=== PATIENT | male | born 1960 | race Caucasian/White ===

== ENCOUNTER → 2016-07-05 | Outpatient (CLI) | payer MEDICAID ==
--- NOTE | 2016-07-05 13:26 | RADIOLOGY REPORT PS360 ---
CHEST(2 VIEWS-NOT PORTABLE) HISTORY: COUGH ORDERING PHYSICIAN: SHO GUSTAFSON PATIENT AGE: 55 years COMPARISON: 09/25/2015 FINDINGS: The cardiomediastinal silhouette and pulmonary vascularity are within normal limits. The lungs are clear without infiltrates, suspicious nodules, or pleural effusions. No acute bony abnormalities. A BEEF BONER shunt traverses the right hemithorax IMPRESSION: No change with no acute finding
--- NOTE | 2016-07-05 13:26 | RADIOLOGY REPORT PS360 ---
CHEST(2 VIEWS-NOT PORTABLE) HISTORY: COUGH ORDERING PHYSICIAN: SHO GUSTAFSON PATIENT AGE: 55 years COMPARISON: 09/25/2015 FINDINGS: The cardiomediastinal silhouette and pulmonary vascularity are within normal limits. The lungs are clear without infiltrates, suspicious nodules, or pleural effusions. No acute bony abnormalities. A BULLION WEIGHER shunt traverses the right hemithorax IMPRESSION: No change with no acute finding
--- NOTE | 2016-07-05 13:27 | RADIOLOGY REPORT PS360 ---
ANKLE-RT-3 VIEWS HISTORY: PAIN AND SWELLING ORDERING PHYSICIAN: SHO GUSTAFSON PATIENT AGE: 55 years COMPARISON: None FINDINGS: No fracture or dislocation. No lytic or blastic change. There is normal mineralization.. The joint spaces are well-preserved. No significant degenerative/arthritic changes. No erosive changes evident. Incidental vascular calcifications IMPRESSION: Negative, no acute finding
--- NOTE | 2016-07-05 13:28 | RADIOLOGY REPORT PS360 ---
FOOT-RT-3 VIEWS HISTORY: PAIN AND SWELLING ORDERING PHYSICIAN: SHO GUSTAFSON PATIENT AGE: 55 years COMPARISON: None FINDINGS: No fracture or dislocation. No lytic or blastic change. There is normal mineralization.. There are minimal osteoarthritic change of the first metatarsophalangeal joint. Mild hypertrophic change distal aspect of first metatarsal Incidental vascular calcifications noted IMPRESSION: Mild osteoarthritic change first metatarsophalangeal joint otherwise negative
--- NOTE | 2016-07-05 13:29 | RADIOLOGY REPORT PS360 ---
LOWER LEG-RT HISTORY: PAIN AND SWELLING ORDERING PHYSICIAN: SHO GUSTAFSON PATIENT AGE: 55 years COMPARISON: None FINDINGS: No bony or joint abnormality. No fracture or dislocation. No lytic or blastic change. IMPRESSION: Negative right tib-fib
== END ==
LOC: RAD 11:49
DX: R05 Cough (principal); M79.604 Pain in right leg; M79.89 Other specified soft tissue disorders

== ENCOUNTER 2016-08-30 16:14 | Emergency (ER) | payer MEDICAID ==
[~2016-08-30] VITALS: Ht 162.6 cm; Wt 72.6 kg
[2016-08-30] MEDS ORDERED: ALDACTONE 25MG25 MG NG (16:52)
[2016-08-30] MEDS ORDERED: ASPIRIN ADULT L81 M3 PO (16:52)
[2016-08-30] MEDS ORDERED: LISINOPRIL2.5 M1 PO (16:52)
[2016-08-30] MEDS ORDERED: CLOPIDOGREL75 MG PO (16:53)
[2016-08-30] MEDS ORDERED: FUROSEMIDE 40MG40 M1 PO (16:53)
[2016-08-30] MEDS ORDERED: LIPITOR40 MG PO (16:54)
[2016-08-30] MEDS ORDERED: HEARTBURN RELIE75 MG PO (16:54)
[2016-08-30] MEDS ORDERED: METOPROLOL25 MG PO (16:55)
--- NOTE | 2016-08-30 17:06 | Emergency Room Report ---
History of Present Illness Time Seen by 1921 Presenting Problem in Triage Pt arrived:Walked Presenting Problem:PT STATES HIS RIGHT LAF AND BACK STARTED HURTING THIS AM. 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 N Clinical Suspician of Infection? N Mental Status: 1 - Regular (Normal Baseline) Sepsis Risk:Low Sepsis Risk Have you (or family members/close friends) recently traveled outside the [place]? N If Yes, where/when: Have you had exposure to infectious disease within the past month? TB? Other? Specify: Source patient, RN notes reviewed, family, RN/MD Exam Limitations no limitations Comment This is a 55-year-old male patient presented to the emergency room with RIGHT lower back pain radiating down the RIGHT lower extremity, nontraumatic, without any associated incontinence or saddle anesthesia, since earlier this morning. She denies any previous similar episodes in the past. ALLERGIES Coded Allergies: No Known Allergies (09/25/15) Home Medications Reported Medications Lisinopril 2.5 MG PO DAILY #60 Aspirin (Aspirin EC) 81 MG PO DAILY #30 Spironolactone (Aldactone) 25 MG NG DAILY #30 Furosemide 40 MG PO DAILY #30 CLOPIDOGREL BISULFATE (Clopidogrel 75MG) 75 MG PO DAILY Ranitidine HCl (Heartburn Relief) 75 MG PO DAILY Atorvastatin Calcium (Atorvastatin) 40 MG PO DAILY Metoprolol Tartrate (Metoprolol) 12.5 MG PO BID History Medical History General CAD? No Angina: No IN: Yes Hypertension? No Hyperlipidemia? No CHF? No DVT? No PE? No COPD? No Asthma? No Anemia? No GERD? No Gastric ulcers? No GI Bleed? No Hernia? No Thyroid Problems? No Hypothyroidism? No CVA? No Seizures? No Diabetes? No Renal Insuffiency? No End Stage Renal Disease? No UTI? No Stones? No BPH? No GB Disease: No Nephritic Syndrome? No Asplenia? No Hepatitis? No Sickle Cell Disease? No Arthritis? No Migraines? No Cataracts? No Glaucoma? No MRSA? No HIV? No TB? No Anxiety? No Depression? No Cancer? No More? No Immunization Hx DT/Tetanus Unknown Surgical Hx Previous Surgery?Y BRAIN SURGERY HEART CATH X1 STENT Social History Smoking Hx Smoker: Current Every Day Smoker Tobacco: Yes Type Chew Alcohol Alcohol: No Review of Systems All Other Systems Reviewed and Negative Musculoskeletal back pain Physical Exam Vital Signs Vital Signs Date Time Temp Pulse Resp B/P Pulse O2 O2 Flow FiO2 Ox Delivery Rate 08/30 1802 98.5 64 20 127/79 95 08/30 1720 20 08/30 1646 98.5 64 18 127/79 95 General Appearance normal appearance, WD/WN, moderate distress Neck normal inspection, non-tender, supple, full range of motion Respiratory Status Yes: trachea midline, chest symmetrical, non tender chest. No: respiratory distress. Lung Sounds bilateral: normal breath sounds, lungs clear. Cardiovascular normal exam, regular rate/rhythm, no peripheral edema, no gallop, no JVD, no murmur, no rub, normal peripheral pulses Peripheral Pulses Pulses normal Yes Gastrointestinal normal bowel sounds, normal exam, non tender, soft, no organomegaly Back normal inspection, no CVA tenderness, no vertebral tenderness, gait normal, muscle spasm Extremities non-tender, normal range of motion, normal inspection Neurologic alert, websphere developer II-XII nml as tested, normal exam, oriented x 3 Reflexes Reflexes normal Yes Skin intact, normal color, warm/dry Medical Decision Making LABS/Meds/Orders Pt receiving controlled substance in ED? No Comment Upon reevaluation the patient appears medically stable, clinically improving. Advised patient to follow-up with PCP per discharge instructions, and take the medications prescribed as directed. Results/Orders Orders Procedure Date/time Status LUMBAR SPINE 5 VIEWS 08/30 1710 Active XRAY/CT/US XRAY/CT/US XRAY L-spine XR interpretation by reviewed by me, discussed w/radiologist Xray Results normal/NAD, no fracture seen Departure Departure Time of Disposition 1747 Disposition DC Home or Self Care(routine) Clinical Impression Primary Impression: Lumbar strain Qualifiers: Encounter type: initial encounter Qualified Code: S39.012A - Strain of muscle, fascia and tendon of lower back, initial encounter Condition STABLE Referrals TAN GRULLON, DORIS IQBAL: Tomorrow-Call Office if not better Patient Instructions DI for Low Back Pain, DI for Muscle Strain Additional Instructions Please take the medications prescribed as directed, follow-up with Dr. Hanna in 2-3 days if no better. Discharge Counseling Counseled pt/family regarding diagnosis, test results, medications/RX, home care, follow up needs Comment Please take the medications prescribed as directed, follow-up with Dr. Hanna in 2-3 days if no better. Prescriptions Current Visit Scripts Methylprednisolone (Medrol Dose Rogers) 4 MG PO UD #1 ROGERS TAKE DIRECTED ON PACKAGING Etodolac 200 MG PO BIDP PRN pain #20 CAP Cyclobenzaprine Hcl (Flexeril) 10 MG PO TID #30 TAB ED Critical Care Critical Care No at 4856
--- NOTE | 2016-08-30 17:06 | Emergency Room Report ---
History of Present Illness Time Seen by [id number] Presenting Problem in Triage Pt arrived:Walked Presenting Problem:PT STATES HIS RIGHT LAF AND BACK STARTED HURTING THIS AM. 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 N Clinical Suspician of Infection? N Mental Status: 1 - Regular (Normal Baseline) Sepsis Risk:Low Sepsis Risk Have you (or family members/close friends) recently traveled outside the [place]? N If Yes, where/when: Have you had exposure to infectious disease within the past month? TB? Other? Specify: Source patient, RN notes reviewed, family, RN/MD Exam Limitations no limitations Comment This is a 55-year-old male patient presented to the emergency room with RIGHT lower back pain radiating down the RIGHT lower extremity, nontraumatic, without any associated incontinence or saddle anesthesia, since earlier this morning. She denies any previous similar episodes in the past. ALLERGIES Coded Allergies: No Known Allergies (09/25/15) Home Medications Reported Medications Lisinopril 2.5 MG PO DAILY #60 Aspirin (Aspirin EC) 81 MG PO DAILY #30 Spironolactone (Aldactone) 25 MG NG DAILY #30 Furosemide 40 MG PO DAILY #30 CLOPIDOGREL BISULFATE (Clopidogrel 75MG) 75 MG PO DAILY Ranitidine HCl (Heartburn Relief) 75 MG PO DAILY Atorvastatin Calcium (Atorvastatin) 40 MG PO DAILY Metoprolol Tartrate (Metoprolol) 12.5 MG PO BID History Medical History General CAD? No Angina: No SD: Yes Hypertension? No Hyperlipidemia? No CHF? No DVT? No PE? No COPD? No Asthma? No Anemia? No GERD? No Gastric ulcers? No GI Bleed? No Hernia? No Thyroid Problems? No Hypothyroidism? No CVA? No Seizures? No Diabetes? No Renal Insuffiency? No End Stage Renal Disease? No UTI? No Stones? No BPH? No GB Disease: No Nephritic Syndrome? No Asplenia? No Hepatitis? No Sickle Cell Disease? No Arthritis? No Migraines? No Cataracts? No Glaucoma? No MRSA? No HIV? No TB? No Anxiety? No Depression? No Cancer? No More? No Immunization Hx DT/Tetanus Unknown Surgical Hx Previous Surgery?Y BRAIN SURGERY HEART CATH X1 STENT Social History Smoking Hx Smoker: Current Every Day Smoker Tobacco: Yes Type Chew Alcohol Alcohol: No Review of Systems All Other Systems Reviewed and Negative Musculoskeletal back pain Physical Exam Vital Signs Vital Signs Date Time Temp Pulse Resp B/P Pulse O2 O2 Flow FiO2 Ox Delivery Rate 08/30 1802 98.5 64 20 127/79 95 08/30 1720 20 08/30 1646 98.5 64 18 127/79 95 General Appearance normal appearance, WD/WN, moderate distress Neck normal inspection, non-tender, supple, full range of motion Respiratory Status Yes: trachea midline, chest symmetrical, non tender chest. No: respiratory distress. Lung Sounds bilateral: normal breath sounds, lungs clear. Cardiovascular normal exam, regular rate/rhythm, no peripheral edema, no gallop, no JVD, no murmur, no rub, normal peripheral pulses Peripheral Pulses Pulses normal Yes Gastrointestinal normal bowel sounds, normal exam, non tender, soft, no organomegaly Back normal inspection, no CVA tenderness, no vertebral tenderness, gait normal, muscle spasm Extremities non-tender, normal range of motion, normal inspection Neurologic alert, automatic pattern edger II-XII nml as tested, normal exam, oriented x 3 Reflexes Reflexes normal Yes Skin intact, normal color, warm/dry Medical Decision Making LABS/Meds/Orders Pt receiving controlled substance in ED? No Comment Upon reevaluation the patient appears medically stable, clinically improving. Advised patient to follow-up with PCP per discharge instructions, and take the medications prescribed as directed. Results/Orders Orders Procedure Date/time Status LUMBAR SPINE 5 VIEWS 08/30 1710 Active XRAY/CT/US XRAY/CT/US XRAY L-spine XR interpretation by reviewed by me, discussed w/radiologist Xray Results normal/NAD, no fracture seen Departure Departure Time of Disposition 1747 Disposition DC Home or Self Care(routine) Clinical Impression Primary Impression: Lumbar strain Qualifiers: Encounter type: initial encounter Qualified Code: S39.012A - Strain of muscle, fascia and tendon of lower back, initial encounter Condition STABLE Referrals TAN GRULLON, DORIS IQBAL: Tomorrow-Call Office if not better Patient Instructions DI for Low Back Pain, DI for Muscle Strain Additional Instructions Please take the medications prescribed as directed, follow-up with Dr. Hanna in 2-3 days if no better. Discharge Counseling Counseled pt/family regarding diagnosis, test results, medications/RX, home care, follow up needs Comment Please take the medications prescribed as directed, follow-up with Dr. Hanna in 2-3 days if no better. Prescriptions Current Visit Scripts Methylprednisolone (Medrol Dose Rogers) 4 MG PO UD #1 ROGERS TAKE DIRECTED ON PACKAGING Etodolac 200 MG PO BIDP PRN pain #20 CAP Cyclobenzaprine Hcl (Flexeril) 10 MG PO TID #30 TAB ED Critical Care Critical Care No at 2167
--- OUTSIDE RECORDS SUMMARY | 2016-08-30 17:25 | External Medical Summary Rpt ---
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 Name Role Phone STATON, STATON Unavailable Unavailable STATON, STATON Unavailable Unavailable STATON ALL, STATON ALL Unavailable Unavailable [facility], Unavailable Unavailable [facility] CHRISTINE, Unavailable Unavailable [facility] CHRISTINE [facility], Unavailable Unavailable [facility] Unavailable Unavailable INC, [facility] Unavailable Unavailable [facility], [facility] Unavailable Unavailable [facility], [facility] RUBI CECI, RUBI CECI Unavailable Unavailable [facility], Unavailable [facility]available [facility], [facility] RENUSCH MIKHAIL, RENUSCH Unavailable Unavailable MIKHAIL Purpose Continuity of Care Document - 09-25-2015 through 2016 Problems Code Diagnosis DOS Provider Status J329 CHRONIC 08-09-2016 [facility] UNSPECIFIED J0190 ACUTE 07-05-2016 [facility] UNSPECIFIED S39884 PAIN IN 07-05-2016 [facility] E18385 PAIN IN 07-05-2016 [facility] T92306 PAIN IN 07-05-2016 [facility] J80833 PAIN IN 07-05-2016 [facility] M7989 OTHER 07-05-2016 [facility] SPE[facility]IED [facility] SOFT TISSUE [facility] DISORDERS R05 COUGH 07-05-2016 [facility] T148 OTHER 07-05-2016 [facility] UNSPECIFIED BODY REGION R937 ABN FIND ON 04-07-2016 [facility] OTH PART [facility] MUSCULOSKEL ETAL SYS I340 NONRHEUMATI 03-09-2016 [facility] INSUFFICIEN CY I361 NONRHEUMATI 03-09-2016 [facility] TRICUSPID [facility] INSUFFICIEN CY I509 HEART 03-09-2016 [facility]PEC[facility] R932 ABNORMAL 03-09-2016 [facility] F[facility] LIVER & BILI TRACT E119 TYPE 2 03-08-2016 [facility] MELLITUS [facility] WITHOUT COMPLICATIO NS E785 HYPERLIPIDE 03-08-2016 [facility] UNSPECIFIED INC I10 ESSENTIAL 03-08-2016 [facility] HYPERTENSIO INC N 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 ANGINA PECTORIS R188 OTHER 03-08-2016 [facility] I213 ST 09-25-2015 [facility] INFARCTION UNS SITE I21.3 ST ELEVATION (STEMI) MYOCARDIAL INFARCTION OF UNSP SITE Allergies, Adverse Reactions, Alerts Clinical Alert Notifications Alert Diabetes: no A1C in the last 6 months Diabetes: no eye exam in the last 365 days Diabetes: no influenza vaccine in the last 365 days Diabetes: no lipid panel in the last 365 days Diabetes: no urine protein screening in the last 365 days Medications Na ND Rx Da Fi Fi Am Da Di Ph RX Ph St me C No te ll ll ou ys ag ar # ys at rm s nt no ma ic us Or Da si cy ia de te s n re d SP 53 04 04 30 30 00 CA Ac IR 74 -0 -2 .0 00 RL ti ON 60 8- 8- 00 00 IS ve OL 51 20 20 76 LE AC 11 17 [address] NE UG S 25 MG TA BL ET LI 68 04 04 60 30 00 CA Ac SI 18 -0 -2 .0 00 RL ti NO 00 8- 8- 00 00 IS ve NV 51 20 20 76 LE IL 20 17 [address] 2. UG 5 S MG TA BL ET 00 04 04 30 30 00 CA Ac PI 60 -0 -2 .0 00 RL ti RI 30 8- 8- 00 00 IS ve N 02 20 20 76 LE EC 63 17 [address] 81 UG S MG TA BL ET FU 00 04 04 30 30 00 CA Ac RO 37 -0 -2 .0 00 RL ti SE 80 8- 8- 00 00 IS ve ID 21 20 20 76 LE DE 61 17 [address] 40 UG S MG TA BL ET RA 53 03 04 60 30 00 CA Ac NI 74 -2 -1 .0 00 RL ti TI 60 5- 4- 00 00 IS ve DI 25 20 20 76 LE NE 30 17 [address] 15 UG 0 S MG TA BL ET ME 62 03 04 30 30 00 CA Ac TO 03 -2 -1 .0 00 RL ti NV 70 5- 4- 00 00 IS ve OL 83 20 20 76 LE OL 01 17 [address] BLANC UG CC S ER 25 MG TA B CL 33 03 04 30 30 00 CA Ac OP 34 -2 -1 .0 00 RL ti ID 20 5- 4- 00 00 IS ve OG 06 20 20 76 LE RE 01 17 17 [address] 75 UG S MG TA BL ET AT 00 03 04 30 30 00 CA Ac OR 37 -2 -1 .0 00 RL ti VA 83 5- 4- [address] 95 20 20 76 LE AT 20 17 17 [address] UG 40 S MG TA BL ET BE 67 03 04 30 10 00 CA Ac NZ 87 -1 -0 .0 00 RL ti ON 70 7 00 IS ve AT 10 20 20 77 LE AT 60 17 17 [address] 20 UG 0 S MG CA PS UL E 00 03 04 30 30 00 CA Ac PI 60 -1 -0 .0 00 RL ti RI 30 3- 7- 00 00 IS ve N 02 20 20 76 LE EC 63 17 [address] 81 UG S MG TA BL ET SP 53 03 04 30 30 00 CA Ac IR 74 -1 -0 .0 00 RL ti ON 60 3- 7- 00 00 IS ve OL 51 20 20 76 LE AC 11 17 17 [address] NE UG S 25 MG TA BL ET AM 00 03 04 20 10 00 CA Ac OX 78 -1 -0 .0 00 RL ti IC 15 4- 7- 00 00 IS ve IL 06 20 20 77 LE LI 10 17 17 [address] 87 UG 5 S MG TA BL ET FU 00 03 04 30 30 00 CA Ac RO 37 -1 -0 .0 00 RL ti SE 80 3- 7- 00 00 IS ve ID 21 20 20 76 LE DE 61 17 [address] 40 UG S MG TA BL ET LI 68 03 04 60 30 00 CA Ac SI 18 -1 -0 .0 00 RL ti NO 00 3- 7- 00 00 IS ve NV 51 20 20 76 LE IL 20 17 [address] 2. UG 5 S MG TA BL ET CL 33 02 03 30 30 00 CA Ac OP 34 -2 -1 .0 00 RL ti ID 20 5- 7- 00 00 IS ve OG 06 20 20 76 LE RE 01 17 17 [address] 75 UG S MG TA BL ET AT 00 02 03 30 30 00 CA Ac OR 37 -2 -1 .0 00 RL ti VA 83 5- 7- [address] 95 20 20 76 LE AT 20 17 17 [address] UG 40 S MG TA BL ET RA 53 02 03 60 30 00 CA Ac NI 74 -2 -1 .0 00 RL ti TI 60 5- 7- 00 00 IS ve DI 25 20 20 76 LE NE 30 17 17 71 5 83 15 UG 0 S MG TA BL ET ME 62 02 03 30 30 00 CA Ac TO 03 -2 -1 .0 00 RL ti NV 70 5- 7- 00 00 IS ve OL 83 20 20 76 LE OL 01 17 17 71 0 82 BLANC UG CC S ER 25 MG TA B 00 02 03 30 30 00 CA Ac PI 60 -1 -1 .0 00 RL ti RI 30 0- 0- 00 00 IS ve N 02 20 20 76 LE EC 63 17 [address] 81 UG S MG TA BL ET FU 00 02 03 30 30 00 CA Ac RO 37 -1 -1 .0 00 RL ti SE 80 0- 0- 00 00 IS ve ID 21 20 20 76 LE DE 61 17 17 71 0 84 40 UG S MG TA BL ET SP 53 02 03 30 30 00 CA Ac IR 74 -1 -1 .0 00 RL ti ON 60 0- 0- 00 00 IS ve OL 51 20 20 76 LE AC 11 17 17 71 TO 0 81 NE UG S 25 MG TA BL ET LI 68 02 03 52 26 00 CA Ac SI 18 -1 -1 .0 00 RL ti NO 00 1- 0- 00 00 IS ve NV 51 20 20 76 LE IL 20 17 [address] 2. UG 5 S MG TA BL ET RA 53 01 02 60 30 00 CA Ac NI 74 -2 -1 .0 00 RL ti TI 60 3- 7- 00 00 IS ve DI 25 20 20 76 LE NE 30 17 17 71 5 83 15 UG 0 S MG TA BL ET SP 53 01 02 30 30 00 CA Ac IR 74 -1 -1 .0 00 RL ti ON 60 1- 0- 00 00 IS ve OL 51 20 20 76 LE AC 11 17 17 71 TO 0 81 NE UG S 25 MG TA BL ET FU 00 02 30 30 00 CA Ac RO 37 -1 -1 .0 00 RL ti SE 80 1- 0- 00 00 IS ve ID 21 20 20 76 LE DE 61 17 [address] 40 UG S MG TA BL ET LI 68 01 02 60 30 00 CA Ac SI 18 -1 -1 .0 00 RL ti NO 00 4- 0- 00 00 IS ve NV 51 20 20 76 LE IL 20 17 [address] 2. UG 5 S MG TA BL ET 00 02 30 30 00 CA Ac PI 60 -1 -1 .0 00 RL ti RI 30 1- 0- 00 00 IS ve N 02 20 20 76 LE EC 63 17 [address] 81 UG S MG TA BL ET AT 00 04 25 30 30 00 CA Ac OR 37 -2 -1 .0 00 RL ti VA 83 1- 0- [address] 95 20 20 76 LE AT 20 17 17 71 IN 5 77 UG 40 S MG TA BL ET CL 33 04 25 30 30 00 CA Ac OP 34 -2 -1 .0 00 RL ti ID 20 1- 0- 00 00 IS ve OG 06 20 20 76 LE RE 01 17 17 [address] 75 UG S MG TA BL ET ME 62 01 02 30 30 00 CA Ac TO 03 -2 -1 .0 00 RL ti NV 70 1- 0- 00 00 IS ve OL 83 20 20 76 LE OL 01 17 17 71 0 82 BLANC UG CC S ER 25 MG TA B RA 53 12 01 60 30 00 CA Ac NI 74 -2 -2 .0 00 RL ti TI 60 6- 0- 00 00 IS ve DI 25 20 20 76 LE NE 30 16 [address] 15 UG 0 S MG TA BL ET ME 62 12 01 30 30 00 CA Ac TO 03 -2 -1 .0 00 RL ti NV 70 3- 3- 00 00 IS ve OL 83 20 20 76 LE OL 01 16 17 71 0 82 BLANC UG CC S ER 25 MG TA B AT 00 12 01 30 30 00 CA Ac OR 37 -2 -1 .0 00 RL ti VA 83 3- 3- [address] 95 20 20 76 LE AT 20 16 17 71 IN 5 77 UG 40 S MG TA BL ET CL 33 12 30 30 00 CA Ac OP 34 -2 -1 .0 00 RL ti ID 20 3- 3- 00 00 IS ve OG 06 20 20 76 LE RE 01 16 17 [address] 75 UG S MG TA BL ET SP 53 12 05 23 30 00 CA Ac IR 74 -1 -0 .0 00 RL ti ON 60 00 IS ve OL 51 20 20 76 LE AC 11 16 [address] NE UG S 25 MG TA BL ET 00 00 CA Ac PI 60 -1 -0 .0 00 RL ti RI 30 00 IS ve N 02 20 20 76 LE EC 63 16 [address] 81 UG S MG TA BL ET FU 00 12 05 23 29 00 CA Ac RO 37 -1 -0 .0 00 RL ti SE 80 00 IS ve ID 21 20 20 76 LE DE 61 16 [address] 40 UG S MG TA BL ET LI 68 12 00 CA Ac SI 18 -1 -0 .0 00 RL ti NO 00 00 IS ve NV 51 20 20 76 LE IL 20 16 [address] 2[address] UG 5 S MG TA BL ET Procedures Procedure DOS Code Location Performer Comment RADIOLOGI 06673 [place] [facility] 7 MEDICAL EXAMINATI IMAGING ON TIBIA ASS & FIBULA 2 VIEWS RADIOLOGI 38187 [place] [facility] C EXAM 7 MEDICAL CHEST 2 IMAGING VIEWS ASS FRONTAL&L ATERAL FIBRIN 79374 [facility] DGRADJ [facility] PRODUCTS INC INC D-DIMER QUAL/SEMI JARVIS RADIOLOGI 64479 [facility] [facility] C 7 MEDICAL EXAMINATI IMAGING ON ANKLE ASS 2 VIEWS RADEX 99627 [facility] ANKLE 7 [facility] COMPLETE INC INC MINIMUM 3 VIEWS COLLECTIO 38878 [facility] N VENOUS 7 [facility] BLOOD INC INC VENIPUNCT URE RADEX 08787 [place] [facility] FOOT 7 MEDICAL COMPLETE IMAGING MINIMUM 3 ASS VIEWS BONE 06362 [place] [facility] &/JOINT 6 MEDICAL [place] [address] [place] [facility] ALL ABDOMEN & 6 MEDICAL PELVIS IMAGING W/O ASS CONTRST 1/> BODY RE ECHO 30445 [place] [facility] CECI TTHRC R-T 6 MEDICAL 2D SERV W/WOM-MOD FOUNDATIO E COMPL N SPE[place] [address] [facility] ABDOMINAL 6 [facility] REAL INC INC TIME W/IMAGE DOCUMENTA TION ECG 71116 [facility] ROUTINE 6 [facility] ECG INC INC W/LEAST 12 LDS TRCG ONLY W/O I&R THERAPEUT 73531 [facility] IC 6 [facility] PROPHYLAC TIC/DX INJECTION SUBQ/IM INJECTION J0696 [facility]- 6 [facility] CEFTRIAXO NE SODIUM PER 250 MG ECG 94045 [facility] ROUTINE [facility] ECG INC INC W/LEAST 12 LDS TRCG ONLY W/O I&R CRITICAL 93913 [facility] 6 PHYSICIAN MIKHAIL ILL/INJUR S, PLLC ED PATIENT INIT 30-74 MIN Encounters Encounter Start End Date Code Location Performer Type Date OFFICE 98200 [facility] OUTPATIEN 7 7 CLINIC T VISIT [facility] MINUTES [facility] OUTPATIEN INC T OFFICE 40257 [facility] OUTPATIEN 7 7 CLINIC SE T VISIT 15 MINUTES [facility] - 6 6 [facility] OUTPATIEN INC T OFFICE 06004 [facility]PAT[facility] 6 6 [facility] T VISIT 15 MINUTES [facility] OUTPATIEN INC T
--- OUTSIDE RECORDS SUMMARY | 2016-08-30 17:25 | External Medical Summary Rpt ---
Author Author , Organization [employer] Address Unknown Phone Unavailable Care Team Providers Care Information Technology Security Manager Name Role Phone STATON, STATON Unavailable Unavailable STATON, STATON Unavailable Unavailable STATON ALL, STATON ALL Unavailable Unavailable [facility], Unavailable Unavailable [facility] CHRISTINE, Unavailable Unavailable [facility] CHRISTINE [facility], Unavailable Unavailable [facility] Unavailable Unavailable INC, [facility] Unavailable Unavailable [facility], [facility] Unavailable [facility], [facility] RUBI CECI, RUBI CECI Unavailable Unavailable [facility], Unavailable Unavailable PLLC, [facility] RENUSCH MIKHAIL, RENUSCH Unavailable Unavailable MIKHAIL Purpose Continuity of Care Document - 09-25-2015 through 2016 Problems Code Diagnosis DOS Provider Status J329 CHRONIC 08-09-2016 [facility] UNSPECIFIED J0190 ACUTE 07-05-2016 [facility] UNSPECIFIED [id number] PAIN IN 07-05-2016 [facility] RIGHT ANKLE [facility]ING [facility] [id number] PAIN IN 07-05-2016 [facility] Z74407 PAIN IN 07-05-2016 [place] RIGHT LOWER MEDICAL LEG [facility] ASS [id number] PAIN IN 07-05-2016 [place] RIGHT FOOT [facility] IM[facility]ING ASS M7989 OTHER 07-05-2016 [facility] SPECIFIED MEDICAL SOFT TISSUE IMAGING ASS DISORDERS R05 COUGH 07-05-2016 [facility] T148 OTHER 07-05-2016 [facility] UNSPECIFIED BODY REGION R937 ABN FIND ON 04-07-2016 [facility] DX IMAG MEDICAL OTH PART IMAGING ASS MUSCULOSKEL ETAL SYS I340 NONRHEUMATI 03-09-2016 [place] [facility] MITRAL SERV [facility] INSUFFICIEN CY I361 NONRHEUMATI 03-09-2016 [place] [facility] TRICUSPID SERV [facility]OUNDATION INSUFFICIEN CY I509 HEART 03-09-2016 [place] MEDICAL FAILURE SERV UNSPECIFIED FOUNDATION R932 ABNORMAL 03-09-2016 [facility] FIND ON DX MEDICAL IMAGING IMAGING ASS LIVER & BILI TRACT E119 TYPE 2 03-08-2016 [facility] MELLITUS INC WITHOUT COMPLICATIO NS E785 HYPERLIPIDE 03-08-2016 [facility] UNSPECIFIED INC I10 ESSENTIAL 03-08-2016 [facility] HYPERTENSIO INC N I2510 ASHD TUSCARORA 03-08-2016 [facility] ARTERY W/O [...] 00 8- 8- 00 00 IS ve NM 51 20 20 76 LE [place] 20 [...] 80 8- 8- 00 00 IS ve CO 21 20 20 76 LE DE 61 [...] 03 -2 -1 .0 00 RL ti NM 70 5- 4- 00 00 IS ve [...] 80 3- 7- 00 00 IS ve CO 21 20 20 76 LE DE 61 17 [address] 40 UG S MG TA BL ET LI 68 03 04 60 30 00 CA Ac SI 18 -1 -0 .0 00 RL ti NO 00 3- 7- 00 00 IS ve NM 51 20 20 76 LE [place] 20 [...] 03 -2 -1 .0 00 RL ti NM 70 5- 7- 00 00 IS ve [...] 80 0- 0- 00 00 IS ve CO 21 20 20 76 LE DE 61 [...] 00 1- 0- 00 00 IS ve NM 51 20 20 76 LE IL 20 [...] 80 1- 0- 00 00 IS ve CO 21 20 20 76 LE DE 61 17 [address] 40 UG S MG TA BL ET LI 68 01 02 60 30 00 CA Ac SI 18 -1 -1 .0 00 RL ti NO 00 4- 0- 00 00 IS ve NM 51 20 20 76 LE [place] 20 [...] 03 -2 -1 .0 00 RL ti NM 70 1- 0- 00 00 IS ve [...] 03 -2 -1 .0 00 RL ti NM 70 3- 3- 00 00 IS ve [...] RL ti SE 80 00 IS ve CO 21 20 20 76 LE DE 61 16 [address] 40 UG S MG TA BL ET LI 68 12 00 CA Ac SI 18 -1 -0 .0 00 RL ti NO 00 00 IS ve NM 51 20 20 76 LE [place] 20 16 [address] 2[address] UG 5 S MG TA BL ET Procedures Procedure DOS Code Location Performer Comment RADIOLOGI 13456 [facility] C 7 MEDICAL EXAMINATI IMAGING ON TIBIA ASS & FIBULA 2 VIEWS RADIOLOGI 07081 [facility] C EXAM 7 MEDICAL CHEST 2 IMAGING VIEWS ASS FRONTAL&L ATERAL FIBRIN 78252 [facility] GREEN DGRADJ 7 [facility] PRODUCTS INC INC D-DIMER QUAL/SEMI JARVIS RADIOLOGI 21978 [facility] BRIONNA C 7 MEDICAL EXAMINATI IMAGING ON ANKLE ASS 2 VIEWS RADEX 64350 [facility] ANKLE 7 [facility] COMPLETE INC INC MINIMUM 3 VIEWS COLLECTIO 30506 [facility] GREEN N VENOUS 7 [facility] BLOOD INC INC VENIPUNCT URE RADEX 22084 [facility] FOOT 7 MEDICAL COMPLETE IMAGING MINIMUM 3 ASS VIEWS BONE 76878 [facility] STAT[facility] &/JOINT 6 MEDICAL IM[place] [address] [facility] BRIONNA ALL ABDOMEN & 6 MEDICAL PELVIS IMAGING W/O ASS CONTRST 1/> BODY RE ECHO 29513 [place] [facility] C[facility] TTHRC R-T 6 MEDICAL 2D SERV W/WOM-MOD FOUNDATIO E COMPL N SPEC&[place] [address] [facility] ABDOMINAL 6 [facility] REAL INC INC TIME W/IMAGE DOCUMENTA TION ECG 26923 [facility] ROUTINE 6 [facility] ECG INC INC W/LEAST 12 LDS TRCG ONLY W/O I&R THERAPEUT 60639 [facility] ORTI[facility] IC 6 CLINIC SE [facility] PROPHYLAC TIC/DX INJECTION SUBQ/IM INJECTION J0696 [facility] BIGGS- 6 [facility]INIC SE [facility] CEFTRIAXO NE SODIUM PER 250 MG ECG 53222 [facility] ROUTINE 6 [facility] ECG INC INC W/LEAST 12 LDS TRCG ONLY W/O I&R CRITICAL 68446 [facility] 6 PHYSICIAN MIKHAIL ILL/INJUR S, PLLC ED PATIENT INIT 30-74 MIN Encounters Encounter Start End Date Code Location Performer Type Date OFFICE 40302 [facility] OUTPATIEN 7 7 CLINIC T VISIT 15 MINUTES [facility] OUTPATIEN INC T OFFICE 14246 [facility] BIGGS-PADMINI OUTPATIEN 7 7 CLINIC SE T VISIT 15 MINUTES [facility] - 6 6 [facility] OUTPATIEN INC T OFFICE 99715 [facility] BIGGS-PADMINI OUTPATIEN 6 6 CLINIC SE [facility] T VISIT 15 MINUTES [facility] OUTPATIEN INC T
--- OUTSIDE RECORDS SUMMARY | 2016-08-30 17:26 | External Medical Summary Rpt ---
Demographics Preferred Language Namibian Marital Status Unknown Yazidism Affiliation Unknown Race Unknown Ethnic Group Unknown Author Author , Organization [employer] Address Unknown Phone Unavailable Purpose Continuity of Care Document - through 2016 Immunization No patient found.
--- OUTSIDE RECORDS SUMMARY | 2016-08-30 17:26 | External Medical Summary Rpt ---
Author Author [employer] Organization [employer] Address Unknown Phone Unavailable
--- OUTSIDE RECORDS SUMMARY | 2016-08-30 17:26 | External Medical Summary Rpt ---
Author Author , Organization [employer] Address Unknown Phone Unavailable Care Team Providers Care Horseradish Grinder Name Role Phone STATON, STATON Unavailable Unavailable STATON, STATON Unavailable Unavailable STATON ALL, STATON ALL Unavailable Unavailable [facility], Unavailable Unavailable [facility] CHRISTINE, Unavailable Unavailable [facility] CHRISTINE [facility], Unavailable Unavailable [facility] Unavailable Unavailable INC, [facility] Unavailable Unavailable [facility], [facility] Unavailable [facility], [facility] RUBI CECI, RUBI CECI Unavailable Unavailable [facility], Unavailable Unavailable PLLC, [facility] RENUSCH MIKHAIL, RENUSCH Unavailable Unavailable MIKHAIL Purpose Continuity of Care Document - 09-25-2015 through 2016 Problems Code Diagnosis DOS Provider Status J329 CHRONIC 08-09-2016 [facility] UNSPECIFIED J0190 ACUTE 07-05-2016 [facility] UNSPECIFIED [id number] PAIN IN 07-05-2016 [place] [facility] O79895 PAIN IN 07-05-2016 [place] RIGHT LEG [facility] [id number] PAIN IN 07-05-2016 [place] RIGHT LOWER MEDICAL LEG IM[facility]ING ASS X00142 PAIN IN 07-05-2016 [place] RIGHT FOOT [facility] M7989 OTHER 07-05-2016 [place] SPECIFIED MEDICAL SOFT TISSUE IMAGING ASS DISORDERS R05 COUGH 07-05-2016 [facility] T148 OTHER 07-05-2016 [facility] UNSPECIFIED BODY REGION R937 ABN FIND ON 04-07-2016 [place] DX IMAG MEDICAL OTH PART IMAGING ASS MUSCULOSKEL ETAL SYS I340 NONRHEUMATI 03-09-2016 [place] MEDICAL C MITRAL SERV VALVE FOUNDATION INSUFFICIEN CY I361 NONRHEUMATI 03-09-2016 IN MEDICAL C TRICUSPID SERV VALVE FOUNDATION INSUFFICIEN CY I509 HEART 03-09-2016 [place] MEDICAL FAILURE SERV UNSPECIFIED FOUNDATION R932 ABNORMAL 03-09-2016 [place] FIND ON DX MEDICAL IMAGING IMAGING ASS LIVER & BILI TRACT E119 TYPE 2 03-08-2016 [facility] MELLITUS INC WITHOUT COMPLICATIO NS E785 HYPERLIPIDE 03-08-2016 [facility] UNSPECIFIED INC I10 ESSENTIAL 03-08-2016 [facility] HYPERTENSIO INC N I2510 ASHD [place] 03-08-2016 [facility] ARTERY W/O INC ANGINA PECTORIS R188 OTHER 03-08-2016 [facility] INC I213 ST 09-25-2015 [facility] INFARCTION UNS SITE Medications Na ND Rx Da Fi Fi [...] RL ti ON 60 8- 8- 00 IS ve OL 51 20 20 76 LE AC 11 17 [address] NE UG S 25 MG TA BL ET LI 68 04 04 60 30 00 CA Ac SI 18 -0 -2 .0 00 RL ti NO 00 8- 8- 00 IS ve AK 51 20 20 76 LE [place] 20 17 [address] 2[address] UG 5 S MG TA BL ET 00 04 04 30 30 00 CA Ac PI 60 -0 -2 .0 00 RL ti RI 30 8- 8- 00 IS ve N 02 20 20 76 LE EC 63 17 [address] 81 UG S MG TA BL ET FU 00 04 04 30 30 00 CA Ac RO 37 -0 -2 .0 00 RL ti SE 80 8- 8- 00 IS ve SD 21 20 20 76 LE DE 61 17 [address] 40 UG S MG TA BL ET CL 33 03 04 30 30 00 [...] 03 -2 -1 .0 00 RL ti AK 70 5- 4- 00 00 IS ve OL 83 20 20 76 LE OL 01 17 [address] BLANC UG CC S ER 25 MG TA B RA 53 03 04 60 30 00 CA Ac NI 74 -2 -1 .0 00 RL ti TI 60 5- 4- 00 00 IS ve DI 25 20 20 76 LE NE 30 17 [address] 15 UG 0 S MG TA BL ET AT 00 [...] -0 .0 00 RL ti ON 70 4- 7- 00 00 IS ve AT 10 20 20 [...] 80 3- 7- 00 00 IS ve SD 21 20 20 76 LE DE 61 17 17 71 0 84 40 UG S MG TA BL ET LI 68 03 04 60 30 00 CA Ac SI 18 -1 -0 .0 00 RL ti NO 00 3- 7- 00 00 IS ve AK 51 20 20 76 LE IL 20 17 [address] 2. UG 5 S MG TA BL ET AT 00 [...] 03 -2 -1 .0 00 RL ti AK 70 5- 7- 00 00 IS ve OL 83 20 20 76 LE OL 01 17 17 71 0 82 BLANC UG CC S ER 25 MG TA B CL 33 02 03 30 30 00 CA Ac OP 34 -2 -1 .0 00 RL ti ID 20 5- 7- 00 00 IS ve OG 06 20 20 76 LE RE 01 17 17 [address] 75 UG S MG TA BL ET 00 02 03 30 30 00 CA [...] 80 0- 0- 00 00 IS ve SD 21 20 20 76 LE DE 61 [...] 00 1- 0- 00 00 IS ve AK 51 20 20 76 LE IL 20 17 17 71 2 85 2. UG 5 S MG TA BL [...] 80 1- 0- 00 00 IS ve SD 21 20 20 76 LE DE 61 17 17 71 0 84 40 UG S MG TA BL ET LI 68 01 02 60 30 00 CA Ac SI 18 -1 -1 .0 00 RL ti NO 00 4- 0- 00 00 IS ve AK 51 20 20 76 LE IL 20 [...] S MG TA BL ET AT 00 01 02 30 30 00 CA Ac OR 37 -2 -1 .0 00 RL ti VA 83 1- 0- [address] 95 20 20 76 LE AT 20 17 [address] UG 40 S MG TA BL ET CL 33 01 30 30 00 CA Ac OP 34 -2 -1 .0 00 RL ti ID 20 1- 0- 00 00 IS ve OG 06 20 20 76 LE RE 01 17 17 [address] 75 UG S MG TA BL ET ME 62 01 02 30 30 00 CA Ac TO 03 -2 -1 .0 00 RL ti AK 70 1- 0- 00 00 IS ve [...] MG TA BL ET ME 62 12 30 30 00 CA Ac TO 03 -2 -1 .0 00 RL ti AK 70 3- 3- 00 00 IS ve OL 83 20 20 76 LE OL 01 16 17 71 0 82 BLANC UG CC S ER 25 MG TA B AT 00 12 30 30 00 CA Ac OR 37 -2 -1 .0 00 RL ti VA 83 3- 3- [address] 95 20 20 76 LE AT 20 16 17 [address] UG 40 S MG TA BL ET CL 33 12 30 30 00 CA Ac OP 34 -2 -1 .0 00 RL ti ID 20 3- 3- 00 00 IS ve OG 06 20 20 76 LE RE 01 16 17 [address] 75 UG S MG TA BL ET FU 00 12 30 30 00 CA Ac RO 37 -1 -0 .0 00 RL ti SE 80 3- 9- 00 00 IS ve SD 21 20 20 76 LE DE 61 16 [address] 40 UG S MG TA BL ET LI 68 12 01 60 30 00 CA Ac SI 18 -1 -0 .0 00 RL ti NO 00 00 IS ve AK 51 20 20 76 LE IL 20 16 [address] 2[address] UG 5 S MG TA BL ET SP 53 12 05 23 30 00 CA Ac IR 74 -1 -0 .0 00 RL ti ON 60 00 IS ve OL 51 20 20 76 LE AC 11 16 [address] IMTIAZ UG S 25 MG TA BL ET 00 12 05 23 29 00 CA Ac PI 60 -1 -0 .0 00 RL ti RI 30 00 IS ve N 02 20 20 76 LE EC 63 16 [address] 81 UG S MG TA BL ET Procedures Procedure DOS Code Location Performer Comment COLLECTIO 86607 [facility] Diaz VENOUS 7 [facility] BLOOD INC INC VENIPUNCT URE RADEX 42742 [facility] GRE[facility] ANKLE 7 [facility] COMPLETE INC INC MINIMUM 3 VIEWS RADEX 90173 [facility] FOOT 7 [facility] COMPLETE INC INC MINIMUM 3 VIEWS RADIOLOGI 14983 [place] [facility] C 7 MEDICAL EXAMINATI IMAGING ON ANKLE ASS 2 VIEWS FIBRIN 78616 [facility] GRE[facility] DGRADJ 7 [facility] PRODUCTS INC INC D-DIMER QUAL/SEMI JARVIS RADIOLOGI 07986 [facility] Ortiz EXAM 7 [facility] CHEST 2 INC INC VIEWS FRONTAL&L ATERAL RADIOLOGI 40765 [facility] GREEN C 7 [facility] EXAMINATI INC INC ON TIBIA & FIBULA 2 VIEWS BONE 90357 [facility] [facility] &/JOINT 6 MEDICAL IM[place] [address] [facility] [facility] ALL ABDOMEN & 6 MEDICAL PELVIS IMAGING W/O ASS CONTRST 1/> BODY RE ECHO 68451 [place] [facility] C[facility] TTHRC R-T 6 MEDICAL 2D SERV W/WOM-MOD FOUNDATIO E COMPL N SPEC&[place] [address] [facility] ABDOMINAL 6 [facility] REAL INC INC TIME W/IMAGE DOCUMENTA TION ECG 89198 [facility] ROUTINE 6 [facility] ECG INC INC W/LEAST 12 LDS TRCG ONLY W/O I&R THERAPEUT 30393 [facility] ORTIZ IC 6 [facility] PROPHYLAC TIC/DX INJECTION SUBQ/IM INJECTION J0696 [facility] BIGGS- 6 [facility] CEFTRIAXO NE SODIUM PER 250 MG ECG 79756 [facility] ROUTINE 6 [facility] ECG INC INC W/LEAST 12 LDS TRCG ONLY W/O I&R CRITICAL 79584 [facility] 6 PHYSICIAN MIKHAIL ILL/INJUR S, PLLC ED PATIENT INIT 30-74 MIN Encounters Encounter Start End Date Code Location Performer Type Date OFFICE 88379 [facility] OUTPATIEN 7 7 CLINIC T VISIT 15 MINUTES OFFICE 84281 [facility] ORTIZ OUTPATIEN 7 7 CLINIC SE T VISIT 15 MINUTES [facility] 6 6 [facility] OUTPATIEN [facility] T OFFICE 29300 [facility] ORTIZ OUTPATIEN 6 6 [facility] T VISIT 15 [facility]UTES [facility] 6 6 [facility] OUTPATIEN INC T
--- OUTSIDE RECORDS SUMMARY | 2016-08-30 17:26 | External Medical Summary Rpt ---
Demographics Preferred Language Angolan Marital Status Unknown Druze Affiliation Unknown Race Unknown Ethnic Group Unknown Author Author , Organization [employer] Address Unknown Phone Unavailable Purpose Continuity of Care Document - through 2016 Immunization No patient found.
--- OUTSIDE RECORDS SUMMARY | 2016-08-30 17:26 | External Medical Summary Rpt ---
Author Author , Organization [employer] Address Unknown Phone Unavailable Care Team Providers Care Instruction Dean Name Role Phone STATON, STATON Unavailable Unavailable STATON, STATON Unavailable Unavailable STATON ALL, STATON ALL Unavailable Unavailable [facility], Unavailable Unavailable [facility] CHRISTINE, Unavailable Unavailable [facility] CHRISTINE [facility], Unavailable Unavailable [facility] Un[facility] Un[facility] INC, [facility] Unavailable Unavailable [facility], [facility] Unavailable [facility]available [facility], [facility] RUBI CECI, RUBI CECI Unavailable Unavailable [facility], Unavailable Unavailable PLLC, [facility] RENUSCH MIKHAIL, RENUSCH Unavailable Unavailable MIKHAIL Purpose Continuity of Care Document - 09-25-2015 through 2016 Problems Code Diagnosis DOS Provider Status J329 CHRONIC 08-09-2016 [facility] UNSPECIFIED J0190 ACUTE 07-05-2016 [facility] UNSPECIFIED M68337 PAIN IN 07-05-2016 [place] RIGHT ANKLE [facility]ICAL IM[facility]ING [facility] D14275 PAIN IN 07-05-2016 [place] RIGHT LEG [facility] V63234 PAIN IN 07-05-2016 [place] RIGHT LOWER MEDICAL LEG [facility] ASS R17898 PAIN IN 07-05-2016 [place] RIGHT FOOT [facility]ICAL IM[facility]ING ASS M7989 OTHER 07-05-2016 [place] SPECIFIED MEDICAL SOFT TISSUE IMAGING ASS DISORDERS R05 COUGH 07-05-2016 [facility] [facility] T148 OTHER 07-05-2016 [place] [facility] UNSPECIFIED BODY REGION R937 ABN FIND ON 04-07-2016 [place] DX IMAG MEDICAL OTH PART IMAGING ASS MUSCULOSKEL ETAL SYS I340 NONRHEUMATI 03-09-2016 [place] [facility] C MITRAL SERV VALVE FOUNDATION INSUFFICIEN CY I361 NONRHEUMATI 03-09-2016 [place] MEDICAL C TRICUSPID SERV VALVE FOUNDATION INSUFFICIEN CY I509 HEART 03-09-2016 [place] MEDICAL FAILURE SERV UNSPECIFIED FOUNDATION R932 ABNORMAL 03-09-2016 [place] FIND ON DX MEDICAL IMAGING IMAGING ASS LIVER & BILI TRACT E119 TYPE 2 03-08-2016 [facility] MELLITUS INC WITHOUT COMPLICATIO NS E785 HYPERLIPIDE 03-08-2016 [facility] UNSPECIFIED INC I10 ESSENTIAL 03-08-2016 [facility] HYPERTENSIO INC N I2510 ASHD SILETZ TRIBE 03-08-2016 [facility] ARTERY W/O [...] NO 00 8- 8- 00 IS ve AL 51 20 20 76 LE IL 20 [...] SE 80 8- 8- 00 IS ve CO 21 20 20 [...] 03 -2 -1 .0 00 RL ti AL 70 5- 4- 00 00 IS ve [...] 00 3- 7- 00 00 IS ve AL 51 20 20 76 LE IL 20 [...] 03 -2 -1 .0 00 RL ti AL 70 5- 7- 00 00 IS ve [...] 00 1- 0- 00 00 IS ve AL 51 20 20 76 LE IL 20 [...] 00 4- 0- 00 00 IS ve AL 51 20 20 76 LE IL 20 [...] 03 -2 -1 .0 00 RL ti AL 70 1- 0- 00 00 IS ve [...] 03 -2 -1 .0 00 RL ti AL 70 3- 3- 00 00 IS ve [...] 80 3- 9- 00 00 IS ve CO 21 20 20 76 LE DE 61 16 [address] 40 UG S MG TA BL ET LI 68 12 01 60 30 00 CA Ac SI 18 -1 -0 .0 00 RL ti NO 00 00 IS ve AL 51 20 20 76 LE IL 20 [...] Procedure DOS Code Location Performer Comment COLLECTIO 54303 [facility] Diaz VENOUS 7 [facility] BLOOD INC INC VENIPUNCT URE RADEX 80342 [facility] GREEN ANKLE 7 [facility] COMPLETE INC INC MINIMUM 3 VIEWS RADEX 47429 [facility] GRE[facility] FOOT 7 [facility] COMPLETE INC INC MINIMUM 3 VIEWS RADIOLOGI 85216 [place] [facility] C 7 MEDICAL EXAMINATI IMAGING ON ANKLE ASS 2 VIEWS FIBRIN 18802 [facility] GREEN DGRADJ 7 [facility] PRODUCTS INC INC D-DIMER QUAL/SEMI JARVIS RADIOLOGI 11022 [facility] Ortiz EXAM 7 [facility] CHEST 2 INC INC VIEWS FRONTAL&L ATERAL RADIOLOGI 24673 [facility] GREEN C 7 [facility] EXAMINATI INC INC ON TIBIA & FIBULA 2 VIEWS BONE 37515 [place] [facility] &/JOINT 6 MEDICAL IMAGING [place] [address] [place] [facility] ALL ABDOMEN & 6 MEDICAL PELVIS IMAGING W/O ASS CONTRST 1/> BODY RE ECHO 62994 [place] [facility] CEC[facility] TTHRC R-T 6 MEDICAL 2D SERV W/WOM-MOD FOUNDATIO E COMPL N SPEC&[place] [address] [facility] ABDOMINAL 6 [facility] REAL INC INC TIME W/IMAGE DOCUMENTA TION ECG 77143 [facility] ROUTINE 6 [facility] ECG INC INC W/LEAST 12 LDS TRCG ONLY W/O I&R THERAPEUT 23086 [facility] IC 6 [facility] PROPHYLAC TIC/DX INJECTION SUBQ/IM INJECTION J0696 [facility] BIGGS- 6 [facility] CEFTRIAXO NE SODIUM PER 250 MG ECG 61785 [facility] ROUTINE 6 [facility] ECG INC INC W/LEAST 12 LDS TRCG ONLY W/O I&R CRITICAL 52206 [facility] 6 PHYSICIAN MIKHAIL ILL/INJUR S, PLLC ED PATIENT INIT 30-74 MIN Encounters Encounter Start End Date Code Location Performer Type Date OFFICE 34191 [facility] OUTPATIEN 7 7 CLINIC T VISIT 15 MINUTES OFFICE 56622 [facility] ORTIZ OUTPATIEN 7 7 CLINIC SE T VISIT 15 MINUTES [facility] 7 [facility] 6 6 [facility]PATI[facility] T OFFICE 10486 [facility] ORTIZ OUTPATIEN 6 6 CLINIC [facility] T [facility]ISIT 15 MINUTES [facility] - 6 6 [facility] OUTPATIEN INC T
[2016-08-30] MEDS ORDERED: MEDROL 4MG. DOSE4 MG PO (17:57)
[2016-08-30] MEDS ORDERED: FLEXERIL10 MG PO (17:58)
[2016-08-30] MEDS ORDERED: ETODOLAC200 MG PO (17:58)
[2016-08-30 18:02] VITALS: BP 127/79
--- NOTE | 2016-09-08 16:16 | RADIOLOGY REPORT PS360 ---
LUMBAR SPINE 5 VIEWS Ordering Physician: JAIR Kellyatikristi Age: 55 years: Male HISTORY: painlow back pain L4/5 Images initially reviewed by ER &/ . Dr. Nolasco now requested to dictated since dictation was not completed TECHNIQUE: Five-view lumbar spine series COMPARISON is made to previous CT abdomen with spine reconstructions March 09, 2016. Also total body bone scan subsequently performed April 07, 2016. Due to the irregular sclerotic appearance of bone at the pelvis sacrum lower spine. FINDINGS Pronounced Degenerative disc space narrowing L5/S1 With posterior endplate osteophytes, & posterior hypertrophic ridging at this level.. These features are similar to the previous CT February 2016. There are reactive endplate changes about this narrowed disc. The As seen on the previous CT there are scattered sclerotic foci at the spine similar to that prior study. These showed no unusual increased activity on bone scan. Thus may merely be some bone islands in the spine However we again see the coarse trabecular pattern at the pelvis bilaterally particular adjacent the SI joints extending into the iliac bones, iliac wings. Today's images Similar in comparison to a CT study from February 2016. Surprisingly there is normal bone scan activity through this region on the March 2016 bone scan less than 6 months ago.... Still this is unusual wall pattern and should warrant ongoing survey to include PSA,,CBC. Calcium & parathyroid function as well as, possibly serum electrophoresis to exclude a a variety possibilities Also note for example the over 1.5 cm sclerotic focus just lateral to the left SI joint was seen on the previous CT from 2010, & unchanged. Degenerative facet changes most evident L4/5 followed by L5/S1, stable since prior CT. The mid and lower sacrum appears intact on included lateral image. LAPPING MACHINE SET UP OPERATOR shunt catheter is seen entering the right upper quadrant passing to the left pelvis with tip at the right lower pelvic basin. Nonspecific bowel gas pattern IMPRESSION 1... L4/5 spondylosis and prominent degenerative disc. .. Prominent disc space narrowing narrow L4/5 disc, with diffuse posterior marginal osteophytes; along with facet hypertrophy. Features yield generous left foraminal encroachment on left more so than right- these features best seen on prior February 2016 CT reconstructions, but again noted on today's images 2. Scattered Sclerotic foci lumbar spine and pelvis again noted . Abnormal osseous architecture in density throughout the pelvic bones most evident at iliac wings adjacent to SI joints again noted . Overall similar appearance since February 2016 CT with no definitive change.. Also note Surprisingly unimpressive subsequent bone scan Mar 2016 performed to further address these abnormal appearing osseous features on prior CT. Nonetheless is does warrant ongoing follow-up and thorough laboratory evaluation as discussed in text 3. The patient did have liver lesions on that February 2016 that warrant follow-up. I would suggest a follow-up CT abdomen with contrast to further evaluate, and particularly in view of the osseous irregularities and current left flank pain history 4. LAPPING MACHINE SET UP OPERATOR shunt catheter again noted. Devika please fax this to Dr. Joshua & patient primary care office
== END 2016-08-30 18:03 | disposition home or self-care (01) ==
LOC: ER 16:14
DX: S39.012A Strain of muscle, fascia and tendon of lower back, initial encounter (principal)
CPT/HCPCS: J2405